=== PATIENT | female | born 1995 | race African-American/Black ===

== ENCOUNTER 2016-11-28 23:53 | Emergency (ER) | payer OTHER ==
[~2016-11-28 23:53] MED LIST: KEFLEX500 MG PO; MACROBID100 MG PO
== END 2016-11-29 01:14 | disposition left against medical advice (07) ==
LOC: CED 23:53
DX: Z53.21 Procedure and treatment not carried out due to patient leaving prior to being seen by health care provider (principal)

== ENCOUNTER 2016-11-29 13:06 | Emergency (ER) | payer OTHER | END 2016-11-29 13:10 | disposition left against medical advice (07) | LOC: CED 13:06 | DX: Z53.21 Procedure and treatment not carried out due to patient leaving prior to being seen by health care provider (principal) | CPT/HCPCS: 84703 ==

== ENCOUNTER 2016-12-05 20:16 | Emergency (ER) | payer OTHER | END 2016-12-05 20:24 | disposition home or self-care (01) | LOC: CFTX 20:16 | DX: O21.9 Vomiting of pregnancy, unspecified (principal); F17.200 Nicotine dependence, unspecified, uncomplicated; Z3A.01 Less than 8 weeks gestation of pregnancy; Z88.8 Allergy status to other drugs, medicaments and biological substances | CPT/HCPCS: 84703; 99284 ==

== ENCOUNTER 2017-01-24 15:35 | Emergency (ER) | payer OTHER ==
--- NOTE | ~2017-01-24 | CT4 ---
[facility] A Service of [facility] RADIOLOGY TEXT RESULTS PATIENT: MICHELLE SINCLAIR LOCATION: [place] : [birth year] UNIT #: [id number] AGE: [address]: Gabriel Hummel SEX: F ORDER DR: [id number] [facility]. [place], [place] [address] [id number] E MR#: [id number] Acc #: [id number] NAME: MICHELLE SINCLAIR. : 1995 SEX: F STUDY DATE/TIME: 01/24/2017 20:22 UNIT: [facility] ROOM: STUDY DESCRIPTION: CT Abd and Pelv Wo Cont Attending Physician: Gabriel Hummel Ordering Physician: Gabriel Hummel Primary Care Physician: Primary Care Physician No MEDICAL IMAGING REPORT This report is preliminary unless electronic signature is present EXAM CT abdomen and pelvis without contrast INDICATION Vaginal discharge, abdominal pain on the left side and bilateral rib pain for 2-[address] images were obtained from the dome of the diaphragm through the symphysis pubis. No oral or intravenous contrast material was administered. This CT exam was performed with one or more of the following radiation dose reduction techniques: automatic exposure control, adjustment of mA and/or kV according to patient size, and iterative reconstruction. FINDINGS Imaged go bases are clear. The liver and gallbladder appear unremarkable as are the spleen, stomach, proximal small bowel given unenhanced technique. Adrenal glands, pancreas and kidneys also all appear normal given unenhanced technique. There is no evidence of mechanical bowel obstruction. Uterus is retroflexed. Urinary bladder appears normal. No suspicious adnexal masses are seen. There is probably a trace amount of free fluid within the pelvis but this certainly can be a normal finding in a 21-year-old patient. Patient's appendix is visualized and is within normal limits. There is no convincing evidence of mechanical bowel obstruction. Review of bony windows does not demonstrate any aggressive osseous abnormalities. IMPRESSION No definite acute intraabdominal or intrapelvic process is seen to account [facility] A Service of [facility] RADIOLOGY TEXT RESULTS PATIENT: MICHELLE SINCLAIR LOCATION: [facility] #: [id number] : [birth year] UNIT #: [id number] AGE: [address]: Gabriel Hummel SEX: F ORDER DR: the patient's symptomatology. There is no evidence of mechanical bowel obstruction. The patient does have a small amount of free fluid within the pelvis but this certainly can be a normal finding in a 21-year-old woman. Patient's uterus is retroflexed but solid organs are otherwise normal. Patient's appendix is visualized and is within normal limits. Dictated by... Hemalatha Almazan M.D. THIS IS AN ELECTRONICALLY VERIFIED REPORT Hemalatha Almazan M.D. at 01/25/2017 11:00 AM BRADLEY/ewa TD: 01/25/2017 04:54 JOB #: [id number] MEDICAL IMAGING REPORT Page 1 of 1 COPY
--- NOTE | ~2017-01-24 | CR63 ---
[facility] A Service of [facility] RADIOLOGY TEXT RESULTS PATIENT: MICHELLE SINCLAIR LOCATION: [facility] : [birth year] UNIT #: [id number] AGE: [address]: Gabriel Hummel SEX: F ORDER DR: [id number] [address] [address] [id number] E MR#: [id number] Acc #: [id number] NAME: MICHELLE SINCLAIR. : 1995 SEX: F STUDY DATE/TIME: 01/24/2017 19:29 UNIT: [facility] ROOM: STUDY DESCRIPTION: CR Chest 2 View Attending Physician: Gabriel Hummel Ordering Physician: Gabriel Hummel Primary Care Physician: Primary Care Physician No MEDICAL IMAGING REPORT This report is preliminary unless electronic signature is present EXAM Chest x-ray 2 views HISTORY Cough for 2-3 days with congestion and sinus problems. Patient has a history of hypertension. FINDINGS 2 views of the chest are reviewed. COMPARISON None. No pleural effusion. Cardiac silhouette size is normal. There is no acute-appearing parenchymal infiltrate or acute congestive failure. There is no pneumothorax. IMPRESSION No active disease. Dictated by... Libertad Leone M.D. THIS IS AN ELECTRONICALLY VERIFIED REPORT Libertad Leone M.D. at 01/25/2017 2:29 PM OMER/ewa TD: 01/25/2017 03:36 JOB #: [id number] MEDICAL IMAGING REPORT [facility] A Service of [facility] RADIOLOGY TEXT RESULTS PATIENT: MICHELLE SINCLAIR LOCATION: [facility] : [birth year] UNIT #: [id number] AGE: [address]: Gabriel Hummel SEX: F ORDER DR: Page 1 of 1 COPY
[2017-01-24 18:14] LABS: URINE SOURCE CLEAN CATCH
[2017-01-24 18:27] LABS: URINE APPEARANCE CLEAR; URINE BILIRUBIN NEG (NEG); URINE BLOOD NEG (NEG); URINE COLOR YELLOW; URINE GLUCOSE NEG (NEG); URINE KETONE TRACE (NEG); URINE LEUKOCYTE ESTERASE TRACE (NEG); URINE NITRATE NEG (NEG); URINE PH 5.5 (5-8); URINE PROTEIN 2+ (NEG); URINE SPECIFIC GRAVITY 1.027 (1.003-1.035)
[2017-01-24 18:30] LABS: CULTURE INDICATED? YES; URINE BACTERIA AUWI 1+ (NEGATIVE); URINE SQUAMOUS EPITHELIAL CELL MOD /[HPF]
[2017-01-27 00:05] LABS: CHLAMYDIA TRACH Not Detected (Not Detected); N GONOR Not Detected (Not Detected)
== END 2017-01-24 21:25 | disposition home or self-care (01) ==
LOC: CED 15:35 → CFTX 15:35
PROVIDERS: Nurse Practitioner
DX: S29.011A Strain of muscle and tendon of front wall of thorax, initial encounter (principal); N89.8 Other specified noninflammatory disorders of vagina; J30.9 Allergic rhinitis, unspecified; X58.XXXA Exposure to other specified factors, initial encounter; Y92.9 Unspecified place or not applicable
CPT/HCPCS: 71020; 74176; 81003; 84703; 87086; 87220; 87491; 87591; 87808; 87905; 99284; J0696

== ENCOUNTER 2017-02-28 22:59 | Emergency (ER) | payer OTHER | END 2017-02-28 23:24 | disposition home or self-care (01) | LOC: CFTX 22:59 → CED 22:59 → CFTX 23:09 | DX: H10.33 Unspecified acute conjunctivitis, bilateral (principal); F17.210 Nicotine dependence, cigarettes, uncomplicated; Z88.8 Allergy status to other drugs, medicaments and biological substances | CPT/HCPCS: 99283 ==